=== PATIENT | female | born 1975 | race Two or more races ===

== ENCOUNTER 2021-06-29 02:00 | Outpatient (CLI) | payer OTHER | END 2021-06-29 02:30 | disposition home or self-care (01) | LOC: PPH VACUNA 02:00 | PROVIDERS: ATTEND Emergency Medicine Pediatric Emergency Medicine | DX: Z23 Encounter for immunization (principal) ==

== ENCOUNTER 2023-08-31 09:00 | Outpatient (CLI) | payer OTHER | END 2023-08-31 09:10 | disposition home or self-care (01) | LOC: PPH VACUNA 09:00 | PROVIDERS: ATTEND Emergency Medicine Pediatric Emergency Medicine | DX: Z23 Encounter for immunization (principal) | CPT/HCPCS: 90653; G0008 ==

== ENCOUNTER 2024-08-24 11:36 | Outpatient (CLI) | payer OTHER ==
[2024-08-24 13:04] LABS: MYCOPLASMA PNEUMONIAE IGM NON REACTIVE (NO REACTIVE)
== END 2024-08-24 11:44 | disposition home or self-care (01) ==
LOC: LAB 11:36
PROVIDERS: ATTEND Anesthesiology
DX: Z20.822 Contact with and (suspected) exposure to COVID-19 (principal); J09.X2 Influenza due to identified novel influenza A virus with other respiratory manifestations; A49.3 Mycoplasma infection, unspecified site